=== PATIENT | female | born 1945 | race Caucasian/White ===

== ENCOUNTER 2023-06-15 23:20 | Inpatient (IN) | payer MEDICARE, OTHER, SELFPAY ==
[2023-06-15 16:38] VITALS: BP 160/88
--- NOTE | 2023-06-15 18:28 | ED.GENMED ---
History of Present Illness
General
Chief Complaint: Bowel Problem
Source: patient
Time Seen by Provider: 06/15/23 18:01
Travel History
Have you had any contact with someone who has COVID-19?: No
Do you have any symptoms of coronavirus? Fever > 100 degrees, chills, cough, shortness of breath, sore throat, loss of taste or smell, muscle aches, or headache?: Yes
Symptoms:: headache
History of Present Illness
History of Present Illness:
77-year-old female with past medical history of chronic bowel complications presenting to the emergency department for evaluation noting that since Sunday she has been constipated noting that she normally will have 3-4 loose bowels per day but
since Sunday has had minimal stool so attempted a fleets enema and manual disimpaction at home, she notes that she did not feel as if she got much of the fleets enema in but since then has been having frequent episodes of very pasty stool which
she says is different than her typical loose bowels which is what prompted her to come to the ER for further evaluation. She notes lower abdominal discomfort and describes the symptoms similar to back in 2020 when she was admitted for stercoral
colitis. She denies any fevers, chills, rigors, nausea, vomiting, urinary symptoms. She notes multiple previous abdominal surgeries including ileocolectomy for Meckel's diverticulum when she was younger and also notes a history of bowel
obstruction but states this feels different from that.
Past History
Past History
ED Past Medical History: Other (History of ovarian cysts, anemia, Bowel obstruction, )
ED Past Surgical History: Appendectomy, Bowel resection, Cholecystectomy, Gynecological (Oophorectomy Right, ) and Other (History of an ileocolectomy 25 years ago, lysis of adhesions,)
Social History
Tobacco: Former smoker
Alcohol: Daily (Wine 1 glasse)
Drug: None
Personal:
Living: with family
Employment: Employed
Review of Systems
Review of Systems
All Other Systems: ROS reviewed and negative except as documented in HPI and ROS
Phy Exam
Physical Exam
Physical Exam:
GENERAL: Alert , in no apparent distress
EYE: clear conjunctiva b/l
HEAD: NCAT
ENT: o/p clr, mmm.
CARDIAC: Regular rate and rhythm .
LUNGS: Clear breath sounds bilaterally, no acute respiratory distress, no wheezes/rales/rhonchi
ABDOMEN: Soft, bloated with tenderness within the diffuse lower abdomen right greater than left, no r/g, no cvat, negative Rainey sign
NEUROLOGICAL: Alert and oriented
SKIN: Warm and dry, skin intact.
MUSCULOSKELETAL: No edema, well perfused.
PSYCH: Normal and appropriate interaction.
Scores
Heart Failure Risk
Heart Failure Risk Score: Not Applicable
Heart Score for Chest Pain Patients
STEMI patient?: Not applicable
Withdrawal Assessment of Alcohol
Withdrawal Assessment Completed?: Not applicable
Course
Orders/Labs/Results
Orders:
Orders
06/15/23
Complete Blood Count/With Diff Urgent
06/15/23 18:16
Urinalysis Reflex To Culture Urgent
Iohexol [Omnipaque] See Protocol PO NOW STA
06/15/23 18:17
Diphenhydramine [Benadryl] 50 mg IV NOW STA
Hydrocortisone Sod Succinate [Solu-Cortef] 200 mg IV NOW STA
06/15/23 19:09
Iohexol [Omnipaque] 50 ml .ROUTE .STK-MED ONE
06/15/23 19:16
CT Abd/pel (oral only)-DH Only Urgent
Comment:
Reason For Exam: abd pain,constipation,multiple surgeries,prev appy
Iohexol [Omnipaque] See Protocol PO NOW STA
06/15/23 19:30
Comprehensive Metabolic Panel Urgent
Lipase Urgent
06/15/23 22:44
Acetaminophen [Tylenol] 1,000 mg PO NOW STA
Abnormal Lab Results
06/15/23 06/15/23
19:30 Unknown
WBC 12.6 H 10^3/uL
(4.8-10.8)
RBC 4.09 L 10^6/uL
(4.20-5.40)
MCH 31.8 H pg
(27.0-31.0)
Absolute Neuts (auto) 10.6 H 10^3/uL
(1.4-6.5)
Absolute Lymphs (auto) 1.0 L 10^3/uL
(1.2-3.4)
Absolute Monos (auto) 0.9 H 10^3/uL
(0.1-0.6)
Neutrophils % 84.1 H %
(42.2-75.2)
Lymphocytes % 7.8 L %
(20.5-51.1)
Sodium 132 L mmol/L
(135-145)
BUN 24 H mg/dl
(7-17)
Glucose 110 H mg/dl
(70-99)
Total Bilirubin 1.8 H mg/dl
(0.2-1.3)
AST 38 H U/L
(14-36)
06/15/23 Unknown
06/15/23 19:30
Vital Signs
Initial and Last Documented VS:
Initial Vital Signs
Temp Pulse Resp BP Pulse Ox
99.1 F 106 16 160/88 98
06/15/23 16:38 06/15/23 16:38 06/15/23 16:38 06/15/23 16:38 06/15/23 16:38
Last Documented Vital Signs
Temp Pulse Resp BP Pulse Ox
99.1 F 106 16 160/88 98
06/15/23 16:38 06/15/23 16:38 06/15/23 16:38 06/15/23 16:38 06/15/23 16:38
MDM/Problems Addressed
Differential Diagnosis Includes:
Constipation, stercoral colitis, diverticulitis, bowel obstruction, patient has previous appendectomy, UTI
MDM/Problems Addressed:
77-year-old female presenting the emergency department for evaluation of constipation since Sunday, attempted aycl-[id number]-nitqwkb measures with questionable relief noting that she has had some bowel movements since the enema but states there very
pasty and has been going back and forth to the bathroom multiple times since the Fleet enema. Patient states that the symptoms feel similar to when she had sterile coral colitis previously. Her abdomen does feel little bit distended but is overall
soft. She does not appear in any distress. Will obtain CT imaging. Possible admission.
Chronic conditions affecting care: Previous abdomnial surgery
Acute Exacerbation and/or Progression of Chronic Illness: Previous abdomnial surgery
*Radiology
Radiology exam reviewed: radiology read reviewed
*Pulse Oximetry
Patient hypoxic: no
*Critical Care Note
Total Time (30-74mins, 75-104mins- exclusive of procedures): Not Applicable
Data Reviewed
Review of Other/Old Records Reveals: Labs, Records and Radiology Studies
Source: patient, records and spouse
Patient Management
Discussion with other providers: Hospitalist
Escalation/DeEscalation of care consider admission/obs:
CT confirms suspicion for stercoral colitis with significant constipation. Patient persistently having bowel movements while in the ED, still noting abdominal bloating and discomfort. Will admit for continued bowel regimens and possible colorectal
evaluation in the morning. Hospitalist is aware and accepts patient for continued evaluation and treatment.
ED Attending Note
-
Portions of this chart may have been created with voice recognition software.� Occasional wrong word or��sound alike� substitutions may have occurred due to the inherent limitations of voice recognition software.
Discharge Plan
Departure
Patient Disposition: Admit
Date of Disposition: 06/15/23
Time of Disposition: 22:41
Presentation/result/management discussed w/ accepting MD/DO: Hospitalist
Discharge Problem:
Stercoral colitis
Prescriptions:
No Action
cyanocobalamin (vitamin B-12) 1,000 MCG tablet
1,000 mcg PO DAILY
cholecalciferol (vitamin D3) 2,000 UNITS tablet
2,000 units PO DAILY
doxycycline hyclate 100 mg tablet
100 mg PO BID Qty: 20 0RF
Referrals:
Rex Garber MD [Family Provider] -
[2023-06-15] MEDS: OMNIPAQUE 50 ML PO (19:18)
[2023-06-15 19:35] LABS: % Basophils 0.4 % (0-2); % Immature Granulocytes 0.2 % (0-0.5); % Lymphocytes 7.8 % (20.5-51.1); % Monocytes 7.5 % (1.7-9.3); % Neutrophils 84.1 % (42.2-75.2); Absolute Basophils 0.1 10^3/uL (0-0.2); Absolute Monocytes 0.9 10^3/uL (0.1-0.6); Absolute Neutrophils 10.6 10^3/uL (1.4-6.5); Hematocrit 37.3 % (37.0-47.0); Mean Corp Hgb Conc. 34.9 g/dL (33.0-37.0); Mean Corpuscular Hgb 31.8 pg (27.0-31.0); Mean Corpuscular Volume 91.2 fL (81.0-99.0); Mean Platelet Volume 9.7 fL (7.4-10.4); Nucleated Red Blood Cells % 0 %; Platelet Count 265 10^3/uL (130-400); Red Blood Cell Count 4.09 10^6/uL (4.20-5.40); Red Cell Dist. Width 13.2 % (11.5-14.5); White Blood Cell Count 12.6 10^3/uL (4.8-10.8)
[2023-06-15 19:47] LABS: ALT (SGPT) 30 U/L (0-35); AST (SGOT) 38 U/L (14-36); Alkaline Phosphatase 96 U/L (38-126); Blood Urea Nitrogen 24 mg/dl (7-17); Calcium 9.3 mg/dl (8.4-10.2); Carbon Dioxide 26 mmol/L (22-30); Chloride 102 mmol/L (98-107); Glucose 110 mg/dl (70-99); Lipase 104 U/L (23-300); Potassium 4.2 mmol/L (3.5-5.1); Sodium 132 mmol/L (135-145); Total Bilirubin 1.8 mg/dl (0.2-1.3); Total Protein 6.9 g/dl (6.3-8.2); eGFR > 60.00
--- NOTE | 2023-06-15 22:43 | HPS.HSE ---
Addendum entered and electronically signed by Layo Haines MD 06/15/23 23:31:
Patient seen and examined independently with [employer]. 77-year-old female past medical history of stercoral proctocolitis, Meckel's diverticulum status post right hemicolectomy with ileal colectomy, internal hemorrhoid, appendectomy, cholecystectomy,
oophorectomy, with chronic loose stools 2-3 times per day presenting with constipation last bowel movement 3 days ago for which she took Fleet enema today followed by pasty stools with bloody streaks and severe rectal pain. No nausea or vomiting or
abdominal pain. Brown stool on rectal exam. CT abdomen pelvis shows stercoral colitis and constipation with large amount of stool in the descending/sigmoid colon. Clear liquids, start azactam. GI consulted.
Original Note:
Family Physician
-
Family Physician: Rex Garber
Chief Complaint
-
constipation
History of Present Illness
77 year old with PMH for SBO, meckel's diverticulum, hemorrhoids presented to us with constipation for past three days. she usually moves 2-3 loose stools. she took fleet enema today and since then having pasty stools. noted some blood spots in the
stool. she also blood after wiping. he abdomen is distended. she could not eat anything today. denied n/v. denied fever, chills, chest pain, sob.denied PAREDES, dizzy or syncopal episode. denied dysuria or hematuria.
CT with stercoral colitis. admitting for further management.
Medical History
Past Medical History
Past Medical History: Reports Other
Additional Past Medical History:
Meckel diverticulum
SBO
Past Surgical History: Reports Other
Additional Past Surgical History:
bowel resection
cholecystectomy
right oophorectomy
ileocolectomy
Social History
Tobacco: Non-smoker
Alcohol: Daily (1 glass of wine daily)
Drug: None
Personal:
Living: With Family
Family History
Family History: Not pertinent
Allergies / Home Medications
Allergies reflects when Allergies were last updated in [facility] [employer].
Home Medications with original date entered in [facility] [employer]
Allergy/Medication List:
Allergies
Allergy/AdvReac Type Severity Reaction Status Date / Time
Iodinated Contrast Media Allergy Hives Verified 12/18/22 17:47
[Iodinated Contrast Media -
Oral and]
pollen extracts Allergy Nasal Verified 12/18/22 17:47
symptoms -
seasonal
levofloxacin [From Levaquin] AdvReac Unknown diarrhea Verified 12/18/22 17:47
metronidazole [From Flagyl] AdvReac Unknown no Verified 12/18/22 17:47
anaphylaxis
amoxicillin [From Augmentin] AdvReac Abdominal Verified 12/18/22 17:47
symptoms
cephalexin AdvReac joint aches Verified 12/18/22 17:47
Cephalosporins AdvReac Joint aches Verified 12/18/22 17:47
clavulanic acid AdvReac Abdominal Verified 12/18/22 17:47
[From Augmentin] symptoms
Home Medications
cholecalciferol (vitamin D3) 50 mcg (2,000 unit) tablet 2,000 units PO DAILY Supplement 06/25/20
cyanocobalamin (vitamin B-12) 1,000 mcg tablet 1,000 mcg PO DAILY Supplement 06/25/20
calcium carbonate 500 mg-vitamin D3 3.125 mcg (125 unit) tablet 1 tab PO BID 06/15/23
multivitamin 1 tab PO DAILY 06/15/23
Review of Systems
-
Constitutional: Reports No Symptoms
EENT: Reports No Symptoms
Respiratory: Reports No Symptoms
Cardiac: Reports No Symptoms
Abdomen/GI: Reports Constipated and Bloody Stools
: Reports No Symptoms
Musculoskeletal: Reports No Symptoms
Skin: Reports No Symptoms
Neurological: Reports No Symptoms
Endocrine: Reports No Symptoms
Hematologic/Lymphatic: Reports No Symptoms
Psych: Reports No Symptoms
Physical Exam
Vital Signs
Vital Signs
Temp Pulse Resp BP Pulse Ox
99.1 F 106 16 160/88 98
06/15/23 16:38 06/15/23 16:38 06/15/23 16:38 06/15/23 16:38 06/15/23 16:38
Physical Exam
General: Well Developed, Well Nourished and No Apparent Distress
HEENT: NormoCephalic, Moist mucous membranes and Atraumatic
Respiratory: Clear
Cardiac: S1/S2 and Regular Rhythm; No Murmur or Rub
GI: Normal Bowel Sounds and Distended; No Organomegaly
Rectal: Deferred by Provider
Musculoskeletal: No Clubbing, No Cyanosis and No Edema
Skin: No Rash
Neuro: AO x 3 and Nonfocal/grossly intact
Psych: Calm
Laboratory Results
-
06/15/23 Unknown
06/15/23 19:30
Laboratory Results
Total Bilirubin 1.8 mg/dl (0.2-1.3) H 06/15/23 19:30
AST 38 U/L (14-36) H 06/15/23 19:30
ALT 30 U/L (0-35) 06/15/23 19:30
Alkaline Phosphatase 96 U/L (38-126) 06/15/23 19:30
Lipase 104 U/L (23-300) 06/15/23 19:30
Data Reviewed
-
Lab Data: Labs Reviewed by me
Impression/Plan
-
#stercoral colitis
-wbc 12.6
-CT abdomen pelvis with Findings most consistent with stercoral colitis and constipation with a large amount of stool in the descending and sigmoid colon.No free air or fluid collection.
-clear liquid diet
-Azactam
-defer stool softener to GI
-GI consult
#hxt of Cuco diverticulum
#hxt of small bowel obstruction
#DVT prophylaxis
-scd
#CODE status
-Full code
[2023-06-15] MEDS: TYLENOL 1000 MG PO (22:49)
[2023-06-15 23:10] LABS: Urine Albumin Negative (Neg - Trace); Urine Bilirubin Negative (Negative); Urine Character Clear (Clear); Urine Color Yellow; Urine Glucose Negative (Negative); Urine Ketone Negative (Negative); Urine Leukocyte Negative (Negative); Urine Nitrite Negative (Negative); Urine Occult Blood 2+ (Negative); Urine Specific Gravity 1.015 (<1.030); Urine Urobilinogen Negative (Neg - 1+)
[2023-06-15 23:18] LABS: Urine Bacteria Few (Negative); Urine White Cell 0-2 /HPF (0-5)
[2023-06-16 00:34] VITALS: BP 134/88; BMI 20.1
--- NOTE | 2023-06-16 00:40 | PTCARENOTE ---
Received patient from ED via stretcher. Patient ambulated from stretcher to bed independently. AAOx3, VSS. Patient reports a 'discomfort' throughout her abdomen. Oriented patient to room and placed call umanzor within reach.
--- NOTE | 2023-06-16 01:17 | W.PN.UPDATE ---
Update Note
Progress Note Update
per Pharmacy recommendation d/c IV antibiotic Azactam and added Unasyn. SE reviewed
[2023-06-16] MEDS: UNASYN IV ×2 (01:58→08:57)
[2023-06-16 06:33] LABS: Hematocrit 35.8 % (37.0-47.0); Hemoglobin 12.3 g/dL (12.0-16.0); Mean Corp Hgb Conc. 34.4 g/dL (33.0-37.0); Mean Corpuscular Hgb 32.2 pg (27.0-31.0); Mean Corpuscular Volume 93.7 fL (81.0-99.0); Mean Platelet Volume 9.9 fL (7.4-10.4); Platelet Count 253 10^3/uL (130-400); Red Blood Cell Count 3.82 10^6/uL (4.20-5.40); Red Cell Dist. Width 13.2 % (11.5-14.5); White Blood Cell Count 9.7 10^3/uL (4.8-10.8)
[2023-06-16 06:54] LABS: Blood Urea Nitrogen 26 mg/dl (7-17); Calcium 9.2 mg/dl (8.4-10.2); Carbon Dioxide 26 mmol/L (22-30); Chloride 100 mmol/L (98-107); Estimated Creatinine Clearance 47 ml/min; Glucose 100 mg/dl (70-99); Potassium 4.1 mmol/L (3.5-5.1); Sodium 135 mmol/L (135-145); eGFR > 60.00
[2023-06-16 07:45] VITALS: BP 128/77
[2023-06-16 09:38] LABS: Direct Bilirubin 0.3 mg/dl (0.0-0.4)
--- NOTE | 2023-06-16 11:05 | W.PN.HOSP.TC ---
Today's Communication/Plan
-
Continue bowel regimen
Assessment / Plan
Assessment / Plan
Gen-AAOx3, NAD
HEENT-NC, AT, anicteric, clear oral mm
Neck-supple
CV-reg, no M, +S1/S2
Lungs-clear B/L
Abd-soft, NT, ND
Ext-no edema
Musculoskeletal-no cyanosis, clubbing
Skin-warm and dry
Neuro-grossly non-focal
Psych-calm, cooperative
Severe constipation/stercoral colitis -continue bowel regimen per GI. Can discontinue antibiotics. No signs of infection. No further bleeding. Advance diet if okay with GI.
Hyponatremia - present on admission. Resolved.
History of Meckel's diverticulum
History of small bowel obstruction
Full code
Anticipated Discharge: Within 24 hours
Subjective/Interval History
-
Date of Service: June 16, 2023
Patient seen and examined. Feeling much better. Had 3 bowel movements this morning. No complaints. Asking to advance her diet.
Objective Data
-
Labs:
Laboratory Results
06/16/23
06:09
WBC 9.7
Hgb 12.3
Hct 35.8 L
Plt Count 253
Sodium 135
Potassium 4.1
Chloride 100
Carbon Dioxide 26
BUN 26 H
Creatinine 0.9
Glucose 100 H
Calcium 9.2
Vital Signs:
Vital Signs
Temp Pulse Resp BP Pulse Ox
98.6 F 95 16 128/77 96
06/16/23 07:45 06/16/23 07:45 06/16/23 07:45 06/16/23 07:45 06/16/23 07:45
Review of Systems
-
History Source: Patient
All other systems: Reviewed and negative
[2023-06-16] MEDS: MIRALAX 17 GRAMS PO ×2 (11:15→20:23)
--- NOTE | 2023-06-16 12:21 | CON.GI ---
Addendum entered and electronically signed by Flavia Delgadillo MD 06/16/23 13:49:
I saw and examined the patient.
The [employer] or PA's note was reviewed and I agree with the note.
Comment: 78-year-old female with history of multiple abdominal surgeries including right hemicolectomy for history of small bowel obstruction, lysis of additions, cholecystectomy, diverticulitis with perforation, presenting with severe constipation.
She follows up with Dr. Zhao as outpatient for history of diarrhea in the past, previous colonoscopies did not show microscopic colitis. She reports 2-3 loose stool a day which are more soft mushy. In the last 3 days, she has had no bowel
movements at all. Denies any abdominal pain, nausea or vomiting. No heartburn or trouble swallowing. No blood in the stool or black stool. CT scan of the abdomen and pelvis showing fecal impaction with stercoral colitis and significant amount of
stool in the colon. Mild leukocytosis which now seems to have resolved. History of small intestinal bacterial overgrowth in the past status post Xifaxan treatment.
Last colonoscopy in 2020, unremarkable study, evidence of right hemicolectomy noted.
-Constipation with possible overflow diarrhea
Rectal exam without any fecal impaction to the reach of the finger
Start milk of molasses enema twice a day to clear out the stool burden in the left colon
Once stool is cleared, continue MiraLAX 17 g twice a day for now. Can titrate the dose based on the bowel movements.
Currently on clear liquid diet, can advance as tolerated.
-Elevated bilirubin, mainly indirect, likely [place]
Monitor LFTs as outpatient as well
Will follow for now
Original Note:
Consultation
-
Date/Time Consultation Requested: 06/16/23 00:28
Date/Time Consultation Performed: 06/16/23 @ 10:00
Requesting Provider: EDISON Moore
Performing Provider: EDISON Garner; Dr. Delgadillo
Reason for Consultation: stercoral colitis
Medical History
Chief Complaint / HPI
Chief Complaint: constipation
History of Present Illness:
The patient is a 78-year-old female with a past medical history significant for recurrent small bowel obstruction with ileocecectomy for Meckel's diverticulum, history of diverticulitis with perforation status post right hemicolectomy, hemorrhoids,
chronic constipation, chronic anemia, who presented to the emergency room with complaints of severe constipation. We are being asked to evaluate for stercoral colitis. Upon review of prior records patient has had ongoing GI issues for many years,
with history of small bowel obstruction secondary to Meckel's diverticulum with ileocecectomy. Also with history of diverticulitis with perforation with right hemicolectomy in the past. She had been evaluated in 2020 for findings of proctocolitis
secondary to constipation. She was treated with antibiotics as well due to leukocytosis at that time. She underwent a colonoscopy in August 2020 which showed a scar in the rectum and evidence of a prior end-to-side ileocolonic anastomosis with
ulceration otherwise normal colon. She presents now with constipation since Sunday. She reports that at baseline she does have chronic loose/pasty stools. She reports rarely having a formed bowel movement at baseline with her GI history. She
notes acutely on Sunday becoming constipated more than usual. She denies any significant abdominal pain, nausea, or vomiting. She notes on average having 2-3 loose/watery bowel movements a day but does not take anything regularly to move her
bowels. She denies any significant weight loss, loss of appetite, chest pain, shortness of breath, dizziness, lightheadedness, unintentional weight loss, loss of appetite, fevers, or chills. She denies any melena, hematochezia, or hematemesis.
She denies any dysphagia or odynophagia. She notes that yesterday she started having again with pasty globs of stool with more formed stools as of today after being started on MiraLAX and is currently feeling improved. Imaging with CT scan was
done showing a large amount of stool throughout the entire colon with a large amount of stool in the rectum and findings consistent with stercoral colitis. She was placed on IV Unasyn upon admission secondary to leukocytosis and CT findings. Other
pertinent lab findings on admission included sodium of 132, BUN 24, creatinine 0.8, total bilirubin 1.8, AST 38, lipase 104, direct bilirubin 0.3, ALT 30, alk phos 96, hemoglobin 12.3. She was then admitted for further evaluation by GI.
Past Medical History
Past Medical History: Other (History of recurrent small bowel obstruction, proctocolitis, chronic constipation, chronic anemia)
Past Surgical History: Bowel Resection (Right hemicolectomy, ileocecectomy for Meckel's diverticulum), Cholecystectomy, Gynecological (Oophorectomy) and Other (Lysis of adhesions)
Social History
Tobacco: Non-Smoker
Alcohol: Daily (1-1.5 glasses of wine daily)
Drug: None
Family History
Family History: Other (Mother with history of colon cancer)
Allergies / Home Medications
Allergy/AdvReac Type Severity Reaction Status Date / Time
Iodinated Contrast Media Allergy Hives Verified 12/18/22 17:47
[Iodinated Contrast Media -
Oral and]
pollen extracts Allergy Nasal Verified 12/18/22 17:47
symptoms -
seasonal
levofloxacin [From Levaquin] AdvReac Unknown diarrhea Verified 12/18/22 17:47
metronidazole [From Flagyl] AdvReac Unknown no Verified 12/18/22 17:47
anaphylaxis
amoxicillin [From Augmentin] AdvReac Abdominal Verified 12/18/22 17:47
symptoms
cephalexin AdvReac joint aches Verified 12/18/22 17:47
Cephalosporins AdvReac Joint aches Verified 12/18/22 17:47
clavulanic acid AdvReac Abdominal Verified 12/18/22 17:47
[From Augmentin] symptoms
Medication Instructions Recorded
cholecalciferol (vitamin D3) 50 2,000 units PO DAILY Supplement 06/25/20
mcg (2,000 unit) tablet
cyanocobalamin (vitamin B-12) 1,000 mcg PO DAILY Supplement 06/25/20
1,000 mcg tablet
calcium carbonate 500 mg-vitamin 1 tab PO BID 06/15/23
D3 3.125 mcg (125 unit) tablet
multivitamin 1 tab PO DAILY 06/15/23
Review of Systems
-
History Source: Patient
Constitutional: Reports No Symptoms
EENT: Reports No Symptoms
Respiratory: Reports No Symptoms
Cardiac: Reports No Symptoms
Abdomen/GI: Reports Abdominal Pain, Diarrhea and Constipated
: Reports No Symptoms
Musculoskeletal: Reports No Symptoms
Skin: Reports No Symptoms
Neurological: Reports No Symptoms
Endocrine: Reports No Symptoms
Vital Signs
Temp Pulse Resp BP Pulse Ox
98.6 F 95 16 128/77 96
06/16/23 07:45 06/16/23 07:45 06/16/23 07:45 06/16/23 07:45 06/16/23 07:45
Physical Exam
Exam
General: Well Developed, Well Nourished, No Apparent Distress and Comfortable
HEENT: Normocephalic, Anicteric and Atraumatic
Respiratory: Clear
Cardiac: S1/S2 and Regular Rhythm
Breast: Deferred by me
GI: Soft, Non Tender, Normal Bowel Sounds and Distended (Minimally distended)
Rectal: Brown and Other (Scant stool in the rectal vault)
Musculoskeletal: No Edema
Skin: Warm and Dry
Neuro: Awake, Alert and Oriented
Psych: Calm
Results
WBC 9.7 10^3/uL (4.8-10.8) 06/16/23 06:09
Hgb 12.3 g/dL (12.0-16.0) 06/16/23 06:09
Hct 35.8 % (37.0-47.0) L 06/16/23 06:09
MCV 93.7 fL (81.0-99.0) 06/16/23 06:09
Plt Count 253 10^3/uL (130-400) 06/16/23 06:09
Absolute Neuts (auto) 10.6 10^3/uL (1.4-6.5) H 06/15/23 Unknown
Sodium 135 mmol/L (135-145) 06/16/23 06:09
Potassium 4.1 mmol/L (3.5-5.1) 06/16/23 06:09
Chloride 100 mmol/L (98-107) 06/16/23 06:09
Carbon Dioxide 26 mmol/L (22-30) 06/16/23 06:09
BUN 26 mg/dl (7-17) H 06/16/23 06:09
Creatinine 0.9 mg/dL (0.6-1.0) 06/16/23 06:09
Calcium 9.2 mg/dl (8.4-10.2) 06/16/23 06:09
Total Bilirubin 1.8 mg/dl (0.2-1.3) H 06/15/23 19:30
AST 38 U/L (14-36) H 06/15/23 19:30
ALT 30 U/L (0-35) 06/15/23 19:30
Alkaline Phosphatase 96 U/L (38-126) 06/15/23 19:30
Lipase 104 U/L (23-300) 06/15/23 19:30
Diagnostic Image Results:
06/15/23 CT A/P: 'Findings most consistent with stercoral colitis and constipation with a large amount of stool in the descending and sigmoid colon. No free air or fluid collection. Limited noncontrast exam. Solid organs grossly unremarkable. Simple
cyst in the left kidney. Mild diffuse renal parenchymal thinning. No bowel obstruction.'
Prior GI Procedures:
EGD: none on file
Colonoscopy: � 2017 with hemorrhoids, patent anastomosis with ulceration and edema with neg biopsy.
Assessment / Plan
-
The patient is a 78-year-old female with a past medical history significant for recurrent small bowel obstruction with ileocecectomy for Meckel's diverticulum, history of diverticulitis with perforation, status post right hemicolectomy, hemorrhoids,
chronic constipation, chronic anemia, who presented to the emergency room with complaints of severe constipation. We are being asked to evaluate for stercoral colitis. With acute onset of constipation since Sunday, CT findings showing stercoral
colitis with a large amount of stool throughout the colon. Started on IV Unasyn upon admission with mild leukocytosis which has since resolved. With extensive GI history and chronic constipation. No obstructive process on imaging. Started on
MiraLAX with some improvement. No significant anemia.
Problem list:
-constipation, CT findings consistent with stercoral colitis
-leukocytosis
-Mildly elevated total bilirubin, AST
-Mild hyponatremia, resolved
-hx right hemicolectomy with ileocolectomy/meckel's diverticulum
-? Diverticulitis with perforation and resection
-Chronic constipation
-History of hemorrhoids
other medical problems:
-appe
-damion
-oophorectomy
-ANTONIO
Recommendations:
-Etiology of stercoral colitis likely secondary to chronic constipation secondary to slow GI motility versus adhesive disease with multiple bowel surgeries versus other
---No indication for ongoing antibiotics, discussed with hospitalist
-Rectal exam demonstrating no overt stool, likely higher up as evident on CT imaging with extensive stool throughout the colon
-Will start on milk and molasses enemas twice daily, discussed with nursing can hold if significant bowel movements
-MiraLAX 17 g twice daily and will need to have a good bowel regimen ongoing. Likely had overflow diarrhea with chronic loose stools at baseline
-Clear liquid diet and advance as tolerated
-Repeat LFTs, if persistent can have outpatient evaluation. 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
-Outpatient follow-up with Dr. Zhao
-Will follow
-
-
Thank you for consultation and allowing me to participate in the patient's care. Please call the alternative medicine practitioner GI physician during the after hours with any questions or concerns.
--- NOTE | 2023-06-16 12:35 | CM ---
IA completed with pt.
Pt is a 78yr old female admitted with severe constipation/stercoral colitis.
At baseline, pt lives with her in a multi level home with 3ste.
Pt is indep at baseline with no current use of DME.
Pt has had no recent SNF/VN use; pt did note a stay in a SNF many years ago for back issues but could not recall the name and used [facility].
PCP; Rex Garber
Pharm; [facility]
PLAN; Return to home with no needs anticipated.
[2023-06-16] MEDS: TYLENOL 650 MG PO (14:52)
[2023-06-16 15:45] VITALS: BP 117/68
[2023-06-16 23:55] VITALS: BP 123/64
[2023-06-17 06:45] LABS: Hematocrit 34.6 % (37.0-47.0); Hemoglobin 12.1 g/dL (12.0-16.0); Mean Corpuscular Hgb 32.9 pg (27.0-31.0); Platelet Count 257 10^3/uL (130-400); Red Blood Cell Count 3.68 10^6/uL (4.20-5.40); Red Cell Dist. Width 13.5 % (11.5-14.5)
[2023-06-17 07:09] LABS: Blood Urea Nitrogen 21 mg/dl (7-17); Calcium 9.3 mg/dl (8.4-10.2); Carbon Dioxide 27 mmol/L (22-30); Chloride 106 mmol/L (98-107); Estimated Creatinine Clearance 43 ml/min; Glucose 98 mg/dl (70-99); Potassium 3.9 mmol/L (3.5-5.1); Sodium 137 mmol/L (135-145); eGFR 58.39
[2023-06-17 07:44] VITALS: BP 139/80
[2023-06-17] MEDS: MIRALAX 17 GRAMS PO (09:22)
--- NOTE | 2023-06-17 09:56 | W.PN.HOSP.TC ---
Addendum entered and electronically signed by Lane Gutierrez DO 06/17/23 13:19:
Abdominal x-ray without obstructive pattern. Minimal colonic stool noted.
I spoke with Dr. Delgadillo, she recommends discharge later today if patient feeling better with improvement in diarrhea.
Resume MiraLAX daily on discharge if diarrhea has resolved.
Follow-up with Dr. Zhao, PCP.
Original Note:
Today's Communication/Plan
-
Await GI input
Assessment / Plan
Assessment / Plan
Gen-AAOx3, NAD
HEENT-NC, AT, anicteric, clear oral mm
Neck-supple
CV-reg, no M, +S1/S2
Lungs-clear B/L
Abd-soft, NT, ND
Ext-no edema
Musculoskeletal-no cyanosis, clubbing
Skin-warm and dry
Neuro-grossly non-focal
Psych-calm, cooperative
Severe constipation/stercoral colitis -continue bowel regimen per GI. Can discontinue antibiotics. No signs of infection. No further bleeding. Tolerating diet. Patient asking if she can back off on her bowel regimen due to frequent stools.
Will discuss with GI.
Hyponatremia - present on admission. Resolved.
History of Meckel's diverticulum
History of small bowel obstruction
Full code
Anticipated Discharge: Within 24 hours
Subjective/Interval History
-
Date of Service: June 17, 2023
Patient seen and examined. Complaining of frequent loose stools. Lots of gas.
Objective Data
-
Labs:
Laboratory Results
06/17/23
06:03
WBC 7.0
Hgb 12.1
Hct 34.6 L
Plt Count 257
Sodium 137
Potassium 3.9
Chloride 106
Carbon Dioxide 27
BUN 21 H
Creatinine 1.0
Glucose 98
Calcium 9.3
Vital Signs:
Vital Signs
Temp Pulse Resp BP Pulse Ox
98.4 F 88 16 139/80 98
06/17/23 07:44 06/17/23 07:44 06/17/23 07:44 06/17/23 07:44 06/17/23 07:44
I&O
06/16/23 06/17/23 06/18/23
06:59 06:59 06:59
Intake Total 1020 / 1020
Balance 1020 / 1020
Review of Systems
-
History Source: Patient
All other systems: Reviewed and negative
--- NOTE | 2023-06-17 10:30 | PTCARENOTE ---
Pt. requesting to talk to Dr. Delgadillo before agreeing to have anymore enemas at this time. Dr. Delgadillo made aware. Will continue to monitor and report on pt.
[2023-06-17 11:25] VITALS: BP 134/70
--- NOTE | 2023-06-17 13:18 | W.DS.TRANS ---
DC Summary - [employer]
-
Discharge Instructions:
Discharge Diagnosis/Procedures Severe constipation
Diet Regular
Activity As tolerated
Driving Restrictions As prior to admission
Bathing Restrictions None
Instructions:
Stand-Alone Forms:
Changes to Home Medications: No
Discharge Medications:
DC Medications w/original date entered in [facility]on[facility]
cholecalciferol (vitamin D3) 50 mcg (2,000 unit) tablet 2,000 units PO DAILY Supplement 06/25/20
cyanocobalamin (vitamin B-12) 1,000 mcg tablet 1,000 mcg PO DAILY Supplement 06/25/20
calcium carbonate 500 mg-vitamin D3 3.125 mcg (125 unit) tablet 1 tab PO BID Supplement 06/15/23
multivitamin 1 tab PO DAILY Supplement 06/15/23
polyethylene glycol 3350 17 gram oral powder packet (HealthyLax) 17 g PO DAILY #0 ea 06/17/23
simethicone 80 mg chewable tablet 80 mg PO QIDPRN PRN gas #0 tabs 06/17/23
Home Medication Changes
Pending Results: No
[2023-06-18 19:41] LABS: Hepatitis C Antibody Negative (Negative)
== END 2023-06-17 14:35 | disposition home or self-care (01) | DRG 389 ==
LOC: 4 EAST ACU 23:20
PROVIDERS: Physician Assistant Medical; Registered Nurse; ADMITTING PHYSICIAN Hospitalist; ATTENDING PHYSICIAN Hospitalist; CONSULT PHYSICIAN Internal Medicine Gastroenterology; EMERGENCY PHYSICIAN Emergency Medicine; FAMILY PHYSICIAN Family Medicine
DX: K56.41 Fecal impaction (principal); E87.1 Hypo-osmolality and hyponatremia; Q43.0 Meckel's diverticulum (displaced) (hypertrophic); K52.89 Other specified noninfective gastroenteritis and colitis; K64.9 Unspecified hemorrhoids; Z90.721 Acquired absence of ovaries, unilateral; Z91.041 Radiographic dye allergy status; Z87.891 Personal history of nicotine dependence
CPT/HCPCS: 74018; 74176; 80048; 80053; 81003; 81015; 82248; 83690; 85025; 85027; 86803; 99285

== ENCOUNTER → 2023-09-26 11:01 | Outpatient (REF) | payer MEDICARE, OTHER, SELFPAY | LOC: WDC 11:01 | PROVIDERS: ATTENDING PHYSICIAN Surgery; FAMILY PHYSICIAN Family Medicine | DX: R92.2 Inconclusive mammogram (principal) | CPT/HCPCS: 76641 ==

== ENCOUNTER → 2023-11-28 13:09 | Outpatient (REF) | payer MEDICARE, OTHER, SELFPAY | LOC: WDC 13:09 | PROVIDERS: ATTENDING PHYSICIAN Surgery; FAMILY PHYSICIAN Family Medicine | DX: Z12.31 Encounter for screening mammogram for malignant neoplasm of breast (principal) | CPT/HCPCS: 77063; 77067 ==

== ENCOUNTER → 2024-10-07 14:00 | Outpatient (REF) | payer MEDICARE, OTHER, SELFPAY | LOC: WDC 14:00 | PROVIDERS: ATTENDING PHYSICIAN Nurse Practitioner Adult Health; FAMILY PHYSICIAN Family Medicine | DX: R92.2 Inconclusive mammogram (principal); Z85.3 Personal history of malignant neoplasm of breast; C50.412 Malignant neoplasm of upper-outer quadrant of left female breast | CPT/HCPCS: 76641 ==

== ENCOUNTER → 2024-12-03 14:02 | Outpatient (REF) | payer MEDICARE, OTHER, SELFPAY | LOC: WDC 14:02 | PROVIDERS: ATTENDING PHYSICIAN Surgery; FAMILY PHYSICIAN Family Medicine | DX: Z12.31 Encounter for screening mammogram for malignant neoplasm of breast (principal) | CPT/HCPCS: 77063; 77067 ==

== ENCOUNTER → 2025-01-07 14:36 | Outpatient (REF) | payer MEDICARE, OTHER, SELFPAY | LOC: RAD 14:36 | PROVIDERS: ATTENDING PHYSICIAN Internal Medicine; FAMILY PHYSICIAN Family Medicine | DX: K62.89 Other specified diseases of anus and rectum (principal); K56.41 Fecal impaction | CPT/HCPCS: 74019 ==

== ENCOUNTER 2025-03-02 06:28 | Day surgery (SDC) | payer MEDICARE, OTHER, SELFPAY | END 2025-03-02 12:47 | disposition home or self-care (01) | LOC: GI 06:28 | PROVIDERS: ATTENDING PHYSICIAN Internal Medicine | DX: R15.2 Fecal urgency (principal); K63.89 Other specified diseases of intestine; K62.4 Stenosis of anus and rectum; K63.3 Ulcer of intestine; D12.2 Benign neoplasm of ascending colon; D12.3 Benign neoplasm of transverse colon; D12.5 Benign neoplasm of sigmoid colon; D12.4 Benign neoplasm of descending colon; K52.9 Noninfective gastroenteritis and colitis, unspecified; K63.5 Polyp of colon; Z90.49 Acquired absence of other specified parts of digestive tract; Z98.0 Intestinal bypass and anastomosis status; Z80.0 Family history of malignant neoplasm of digestive organs | CPT/HCPCS: 45385; 45380; 88305 ==